=== PATIENT | male | born 1980 | race Caucasian/White ===

== ENCOUNTER 2016-11-20 10:57 | Emergency (ER) | payer BC, OTHER ==
[2016-11-20 11:23] VITALS: BP 137/94; PULSE 76; RESP 20; TEMP 98.1
--- NOTE | 2016-11-20 13:17 | ED ---
ENT HPI - General Chief complaint: Dental/Oral Stated complaint: tooth pain Time Seen by Provider: 11/20/16 13:13 Source: patient, RN notes reviewed Mode of arrival: ambulatory Limitations: no limitations - History of Present Illness Initial comments: 36 year old male presents emergency Department with the chief complaint dental pain. Patient states that he's had bad teeth and states that he's had dental problems in the past. Patient states that he has not been to the dental clinic at this time. Patient denies any fevers or chills. Patient states he has some facial swelling or difficulty swallowing. Patient tried some Tylenol with no relief. - Related Data Home Medications Medication Instructions Recorded Confirmed HYDROcodone/APAP 7.5-325MG [[place] 1 tab PO TID PRN 11/22/15 03/18/16 7.5-325] Previous Rx's Medication Instructions Recorded HYDROcodone/APAP 7.5-325MG [[place] 1 each PO Q6HR PRN #30 tab 03/18/16 7.5] Clindamycin HCl 300 mg PO Q6HR #40 cap 11/20/16 Hydrocodone/Acetaminophen [[place] 1 tab PO Q6HR PRN #20 tab 11/20/16 5-325] Allergies Allergy/AdvReac Type Severity Reaction Status Date / Time Penicillins Allergy Rash/Hives Verified 11/20/16 11:23 Review of Systems ROS Statement: Those systems with pertinent positive or pertinent negative responses have been documented in the HPI. ROS Other: All systems not noted in ROS Statement are negative. Past Medical History Past Medical History: Osteoarthritis (OA) Additional Past Medical History / Comment(s): migraines, History of Any Multi-Drug Resistant Organisms: None Reported Past Surgical History: Appendectomy, Hernia Repair, Orthopedic Surgery, Tonsillectomy Additional Past Surgical History / Comment(s): Rt hip arthroscopic ,lt knee Past Anesthesia/Blood Transfusion Reactions: No Reported Reaction Past Psychological History: No Psychological Hx Reported Smoking Status: Current every day smoker Past Alcohol Use History: None Reported Additional Past Alcohol Use History / Comment(s): Smokes < 1/2 PPD, smoked for 20 yrs Past Drug Use History: None Reported - Past Family History Father Family Medical History: Coronary Artery Disease (CAD), Diabetes Mellitus, Hypertension Mother Family Medical History: No Reported History Additional Family Medical History / Comment(s): CABG General Exam Limitations: no limitations General appearance: alert, in no apparent distress Head exam: Present: atraumatic, normocephalic, normal inspection ENT exam: Present: mucous membranes moist, TM's normal bilaterally, normal external ear exam. Absent: normal exam, normal oropharynx (Multiple dental caries mild swelling of the left upper gums with no drainable abscess) Neck exam: Present: normal inspection. Absent: tenderness, meningismus, lymphadenopathy Respiratory exam: Present: normal lung sounds bilaterally. Absent: respiratory distress, wheezes, rales, rhonchi, stridor Cardiovascular Exam: Present: regular rate, normal rhythm, normal heart sounds. Absent: systolic murmur, diastolic murmur, rubs, gallop, clicks Course Vital Signs 11/20/16 11:20 Temperature 98.1 F Pulse Rate 76 Respiratory 20 Rate Blood Pressure 137/94 O2 Sat by Pulse 99 Oximetry Medical Decision Making - Medical Decision Making 36-year-old male presented for dental pain. Patient be treated with clindamycin , [place]. He is advised follow-up with dentist return parameters were discussed. Disposition Clinical Impression: Pain, dental, Dental infection Disposition: HOME SELF-CARE Condition: Stable Instructions: Toothache (ED) Additional Instructions: Please return to the Emergency Department if symptoms worsen or any other concerns.Please follow up with the [facility] dental clinic. [facility] [place] [address]. Phone number for new patients or [phone] for existing patients. Prescriptions: Clindamycin HCl 300 mg PO Q6HR #40 cap Hydrocodone/Acetaminophen [[place] 5-325] 1 tab PO Q6HR PRN #20 tab PRN Reason: Pain Referrals: Pk Hurtado MD [Primary Care Provider] - 1-2 days Time of Disposition: 13:17
== END 2016-11-20 13:24 | disposition home or self-care (01) ==
LOC: EC 10:57
DX: K04.7 Periapical abscess without sinus (principal); K02.9 Dental caries, unspecified; F17.200 Nicotine dependence, unspecified, uncomplicated; Z88.0 Allergy status to penicillin
CPT/HCPCS: 99282

== ENCOUNTER → 2021-03-05 | Outpatient (CLI) | payer OTHER ==
--- NOTE | 2021-03-05 14:37 | US ---
EXAMINATION TYPE: US gallbladder DATE OF EXAM: 03/05/2021 COMPARISON: NONE CLINICAL HISTORY: R10.11 RUQ Abd pain. Patient stated has intermittent epigastric pain x 1 year, but increasing in intensity and radiating to back in past month. EXAM MEASUREMENTS: Liver Length: 15.9 cm Gallbladder Wall: 0.2 cm CBD: 0.1 cm Right Kidney: 9.1 x 5.0 x 3.7 cm Pancreas: wnl. Distal tail was not visualized due to bowel gas Liver: wnl Gallbladder: wnl Evidence for sonographic Bernstein's sign: no CBD: wnl Right Kidney: No hydronephrosis or masses seen IMPRESSION: 1. Visualized right upper quadrant ultrasound is normal.
== END | disposition home or self-care (01) ==
LOC: RADUSWWP 13:34
PROVIDERS: ATTEND Family Medicine
DX: R10.11 Right upper quadrant pain (principal); R10.13 Epigastric pain
CPT/HCPCS: 76705

== ENCOUNTER 2021-04-17 08:05 | Day surgery (SDC) | payer OTHER ==
[2021-04-15 10:45] VITALS: BMI 26.6
[~2021-04-17 08:05] MED LIST: LACTATED RINGERS 1,000 ML IV SCH; LIDOCAINE 1% (10MG/ML) FOR IV START INTRADERMA PRN
[2021-04-17 08:43] VITALS: TEMP 98
[2021-04-17] MEDS ORDERED: LIDOCAINE 1% INJ 10MG/ML (20 ML MDV) ONE (09:31)
[2021-04-17] MEDS ORDERED: PROPOFOL 10 MG/ML 20 ML VIAL IV ONE (09:31)
--- NOTE | 2021-04-17 09:31 | P.GSHP ---
History of Present Illness H&P Date: 04/17/21 Chief Complaint: GERD Is a 40-year-old male who presents today for EGD. He's had issues with GERD. Past Medical History Past Medical History: Asthma, Chest Pain / Angina, Myocardial Infarction ([place]), Osteoarthritis (OA) Additional Past Medical History / Comment(s): migraines, recent pain in chest Last Myocardial Infarction Date:: 03/11 History of Any Multi-Drug Resistant Organisms: None Reported Past Surgical History: Appendectomy, Hernia Repair, Orthopedic Surgery, Tonsillectomy Additional Past Surgical History / Comment(s): Rt hip arthroscopic ,lt knee Past Anesthesia/Blood Transfusion Reactions: No Reported Reaction, Motion Sickness Smoking Status: Current every day smoker - Past Family History Father Family Medical History: Coronary Artery Disease (CAD), Diabetes Mellitus, Hypertension Mother Family Medical History: No Reported History Additional Family Medical History / Comment(s): CABG Medications and Allergies Home Medications Medication Instructions Recorded Confirmed Type Budesonide/Formoterol Fumarate 2 puff INHALATION BID 04/15/21 04/15/21 History [Symbicort 160-4.5 Mcg Inhaler] HYDROcodone/APAP 10-325MG [[place] 1 tab PO TID PRN 04/15/21 04/15/21 History 10-325] Ibuprofen [Motrin] 800 mg PO Q8H PRN 04/15/21 04/15/21 History Allergies Allergy/AdvReac Type Severity Reaction Status Date / Time Penicillins Allergy Rash/Hives Verified 04/17/21 08:35 Surgical - Exam Vital Signs Temp Pulse Resp BP Pulse Ox 98.0 F 66 16 140/85 98 04/17/21 08:40 04/17/21 08:40 04/17/21 08:40 04/17/21 08:40 04/17/21 08:40 - General well developed, well nourished, no distress - Eyes PERRL - ENT normal pinna - Neck no masses - Respiratory normal expansion - Cardiovascular Rhythm: regular - Abdomen Abdomen: soft, non tender Assessment and Plan Assessment: GERD. We'll perform EGD.
--- NOTE | 2021-04-17 09:39 | P.OP ---
Date of Procedure: 04/17/21 Preoperative Diagnosis: GERD Postoperative Diagnosis: Mild antral gastritis Small sliding hiatal hernia Mild esophagitis Procedure(s) Performed: EGD Anesthesia: MAC Surgeon: Yovani Kelly Pathology: other (Antral, esophagus) Condition: stable Disposition: PACU Description of Procedure: The patient's placed on the endoscopy table in the lateral position. He received IV sedation. The gastroscope placed oropharynx passed in the esophagus and the stomach. Scope was placed through the pylorus. The first and second portion of the duodenum scope was then brought back the antrum this. Mildly inflamed. A biopsies performed. Scope was then retroflexed and the remainder stomach appeared normal. There appeared to be evidence of a small sliding hiatal hernia. The GE junction was at 40 cm the distal esophagus appeared minimally inflamed. A biopsy the proximal esophagus appeared normal. Scope was withdrawn for patient.
[2021-04-17] MEDS ORDERED: IV FLUID CONTINUATION 600 ML IV ONE (09:40)
[2021-04-17 10:16] VITALS: BP 124/80; PULSE 65; RESP 16
== END 2021-04-17 10:45 | disposition home or self-care (01) ==
LOC: ORWHC2ENDO 08:05
PROVIDERS: ATTEND Surgery
DX: K21.00 Gastro-esophageal reflux disease with esophagitis, without bleeding (principal); K44.9 Diaphragmatic hernia without obstruction or gangrene; K29.70 Gastritis, unspecified, without bleeding; J44.9 Chronic obstructive pulmonary disease, unspecified; E78.5 Hyperlipidemia, unspecified; E78.00 Pure hypercholesterolemia, unspecified; E29.1 Testicular hypofunction; R16.0 Hepatomegaly, not elsewhere classified; F17.299 Nicotine dependence, other tobacco product, with unspecified nicotine-induced disorders; M51.16 Intervertebral disc disorders with radiculopathy, lumbar region; E66.9 Obesity, unspecified; Z68.25 Body mass index [BMI] 25.0-25.9, adult
CPT/HCPCS: 88305; 43239; J2001; J2704

== ENCOUNTER → 2021-05-02 | Outpatient (CLI) | payer OTHER ==
[2021-05-02 16:50] LABS: Basophils % (A) 0 %; Eosinophils # (A) 0.3 k/uL (0-0.7); Eosinophils % (A) 5 %; HCT 40.4 % (39.0-53.0); HGB 13.4 gm/dL (13.0-17.5); Lymphocytes % (A) 32 %; MCH 31.6 pg (25.0-35.0); MCHC 33.1 g/dL (31.0-37.0); MCV 95.6 fL (80.0-100.0); Monocytes # (A) 0.4 k/uL (0-1.0); Monocytes % (A) 6 %; Neutrophils # (A) 3.4 k/uL (1.3-7.7); Neutrophils % (A) 53 %; Platelet Count 413 k/uL (150-450); RBC 4.23 m/uL (4.30-5.90); RDW 12.7 % (11.5-15.5); WBC 6.3 k/uL (3.8-10.6)
== END | disposition home or self-care (01) ==
LOC: LABPAT 15:54
PROVIDERS: ATTEND Surgery
DX: I10 Essential (primary) hypertension (principal); K21.00 Gastro-esophageal reflux disease with esophagitis, without bleeding
CPT/HCPCS: 85025; 93005

== ENCOUNTER 2021-05-13 06:30 | Day surgery (SDC) | payer OTHER ==
[~2021-05-13 06:30] MED LIST changes: +ACETAMINOPHEN TAB 500 MG TAB PO PRN; +DEXAMETHASONE SOD PHOSPHATE 4 MG/ML 1 ML VIAL IV ONE; +HEPARIN SODIUM,PORCINE/PF 5,000 UNIT/0.5 ML SYRINGE SQ PRN; -LACTATED RINGERS 1,000 ML IV SCH; +ONDANSETRON 4 MG/2 ML VIAL IVP ONE; +SCOPOLAMINE 1.5MG/72HR PATCH TRANSDERM ONE
[2021-05-13] MEDS: LACTATED RINGERS 1,000 ML IV SCH (07:04)
[2021-05-13] MEDS ORDERED: MIDAZOLAM 2 MG/2 ML VIAL ONE (07:53)
[2021-05-13] MEDS ORDERED: LIDOCAINE 1% INJ 10MG/ML (20 ML MDV) ONE (07:53)
[2021-05-13] MEDS ORDERED: PROPOFOL 10 MG/ML 20 ML VIAL IV ONE (07:53)
[2021-05-13] MEDS ORDERED: NEOSTIGMINE 1 MG/ML 10 ML VIAL ONE (07:53)
[2021-05-13] MEDS ORDERED: ALBUTEROL HFA INHALER INHALATION ONE (07:53)
[2021-05-13] MEDS ORDERED: ROCURONIUM 10 MG/ML (5 ML VIAL) IV ONE (07:53)
[2021-05-13] MEDS ORDERED: KETAMINE 10 MG/ML 20 ML VIAL ONE (07:53)
[2021-05-13] MEDS ORDERED: GLYCOPYRROLATE 0.2 MG/ML 2 ML VIAL ONE (07:53)
[2021-05-13] MEDS ORDERED: fentaNYL (PF) 50 MCG/ML 2 ML AMP ONE (07:53)
[2021-05-13] MEDS ORDERED: SUCCINYLCHOLINE CHLORIDE 100 MG/5 ML SYR IV ONE (07:53)
[2021-05-13] MEDS ORDERED: BUPIVACAINE (PF) 0.25% 30 ML VIAL SQ ONE (08:20)
--- NOTE | 2021-05-13 09:03 | P.GSHP ---
History of Present Illness H&P Date: 05/13/21 Chief Complaint: GERD This a 40-year-old male who's had long-standing problems reflux esophagitis. Patient rents today for laparoscopic Jair fundal plication. Patient's where the surgery including conversion to the open procedure and issues of recurrent GERD and dysphagia. Past Medical History Past Medical History: Asthma, Chest Pain / Angina, GERD/Reflux, Myocardial Infarction ([place]), Osteoarthritis (OA) Additional Past Medical History / Comment(s): migraines, recent pain in chest , HIATAL HERNIA Last Myocardial Infarction Date:: 03/11 History of Any Multi-Drug Resistant Organisms: None Reported Past Surgical History: Appendectomy, Hernia Repair, Orthopedic Surgery, Tonsillectomy Additional Past Surgical History / Comment(s): Rt hip arthroscopic ,lt knee SX, EGD Past Anesthesia/Blood Transfusion Reactions: No Reported Reaction, Motion Sickness Smoking Status: Current every day smoker - Past Family History Father Family Medical History: Coronary Artery Disease (CAD), Diabetes Mellitus, H ypertension Mother Family Medical History: No Reported History Additional Family Medical History / Comment(s): CABG Medications and Allergies Home Medications Medication Instructions Recorded Confirmed Type Budesonide/Formoterol Fumarate 2 puff INHALATION BID 04/15/21 05/13/21 History [Symbicort 160-4.5 Mcg Inhaler] Ibuprofen [Motrin] 800 mg PO Q8H PRN 04/15/21 05/09/21 History Allergies Allergy/AdvReac Type Severity Reaction Status Date / Time Penicillins Allergy Rash/Hives Verified 05/09/21 09:40 Surgical - Exam Vital Signs Temp Pulse Resp BP Pulse Ox 97.1 F L 76 16 125/81 97 05/13/21 06:54 05/13/21 06:54 05/13/21 06:54 05/13/21 06:54 05/13/21 06:54 - General well developed, well nourished, no distress - Eyes PERRL - ENT normal pinna - Neck no masses - Respiratory normal expansion - Cardiovascular Rhythm: regular - Abdomen Abdomen: soft, non tender Assessment and Plan Assessment: GERD. We'll perform laparoscopic Jair fundoplication
[2021-05-13] MEDS ORDERED: ALBUTEROL NEBULIZED 2.5 MG/3 ML INHALATION ONE (09:20)
[2021-05-13] MEDS ORDERED: ALBUTEROL NEBULIZED 2.5 MG/3 ML INHALATION STA (09:21)
[2021-05-13] MEDS: MEPERIDINE 50 MG/ML SYRINGE IVP STA ×2 (09:28→09:34)
[2021-05-13] MEDS: HYDROmorphone 0.5 MG/0.5 ML SYRINGE IVP PRN ×2 (11:11→17:53)
--- NOTE | 2021-05-13 11:14 | FL ---
EXAMINATION TYPE: FL esophagus cervic/pharynx DATE OF EXAM: 05/13/2021 LIMITED UGI-ESOPHAGRAM: CLINICAL HISTORY: Hiatal hernia and reflux status post Javy fundoplication surgery earlier today. TECHNIQUE: Limited esophagram is performed utilizing 20 oz of contrast. A total of 69 seconds of flu oroscopic time was utilized during procedure and 15 images obtained. FINDINGS: The patient swallowed contrast without difficulty or delay. Esophageal peristalsis and mo tility are satisfactory. There is no visualized flow of contrast along the diaphragmatic hiatus into the stomach, even after waiting over 10 minutes. There is stasis of contrast with some proximal esoph ageal reflux seen during real-time scanning No persistent hiatal hernia is seen. Patient however show s no increased symptoms of nausea or vomiting. IMPRESSION: Nondiagnostic as no flow of contrast identified at level of diaphragmatic hiatus to asses s for leak. .
[2021-05-13 13:26] VITALS: BMI 25.6
[2021-05-13] MEDS: D5-0.45% NACL WITH KCL 20MEQ/L 1,000 ML IV SCH ×3 (13:55→22:50)
[2021-05-13] MEDS: DEXAMETHASONE SOD PHOSPHATE 4 MG/ML 1 ML VIAL IVP SCH ×3 (13:58→22:50)
[2021-05-13 20:02] VITALS: RESP 16
[2021-05-13] MEDS: HYDROmorphone 1 MG/ML 1 ML SYRINGE IVP PRN (22:55)
[2021-05-14] MEDS: LACTATED RINGERS 1,000 ML IV SCH (03:11)
[2021-05-14] MEDS: HYDROmorphone 1 MG/ML 1 ML SYRINGE IVP PRN ×2 (03:14→08:00)
[2021-05-14] MEDS: DEXAMETHASONE SOD PHOSPHATE 4 MG/ML 1 ML VIAL IVP SCH ×2 (05:13→12:31)
[2021-05-14] MEDS: D5-0.45% NACL WITH KCL 20MEQ/L 1,000 ML IV SCH (05:14)
[2021-05-14] MEDS ORDERED: SYMBICORT 160-4.5 MCG INHALER INHALATION SCH (08:00)
[2021-05-14] MEDS ORDERED: ENOXAPARIN 40 MG/0.4 ML SYRINGE SQ SCH (09:00)
--- NOTE | 2021-05-14 09:14 | CONS ---
CONSULTATION Kyioz-vjig-imb white male with a longstanding history of reflux esophagitis, status post Jair fundoplication with surgery including conversion to open procedure and issues of recurrent GERD and dysphagia. PAST MEDICAL HISTORY: Asthma, GERD, osteoarthritis, coronary artery disease. Surgeries: orthopedic surgery, tonsillectomy, appendectomy, right hip arthroscopy, knee surgery, EGD. Family history: Father with diabetes mellitus, coronary artery disease, hypertension. Mother with CABG. The patient continues to smoke. Home medicines: Symbicort 2 puffs b.i.d. ALLERGIES: PENICILLIN. PHYSICAL EXAMINATION: Temperature is 97.1, pulse 76, respiratory rate 16-18, blood pressure 125/81, O2 97. Pupils equal, round, reactive to light and accommodation. Cardiovascular S1, S2. Lungs clear. GI soft. Hematology negative Homans. Psych fair mood and affect. ASSESSMENT AND PLAN: Gastroesophageal reflux disease, status post Jair fundoplication. Do a video scope, make sure he can swallow and pass food down the pipe without any stenosis prior to discharge. Continue on Symbicort for his inhalers for breathing. MMODL / IJN: [id number] /
--- NOTE | 2021-05-14 11:20 | P.PN ---
Progress Note - Text Progress Note Date: 05/14/21 Patient is doing well. He started clear liquids. On exam vital signs are stable. Abdomen soft. Incision sites clean and intact. Status post Jair fundoplication. His initial postoperative upper GI showed occlusion most likely postoperative edema. Patient has no clinical signs of obstruction at this point. He'll remain on clear liquid diet. He'll be discharged home today.
[2021-05-14 12:00] VITALS: BP 100/62; PULSE 71; TEMP 98.1
--- NOTE | 2021-05-21 09:48 | P.OP ---
Date of Procedure: 05/21/21 Preoperative Diagnosis: GERD Postoperative Diagnosis: GERD Procedure(s) Performed: Laparoscopic Jair fundal plication Anesthesia: MONIKA Surgeon: Yovani Kelly Estimated Blood Loss (ml): 5 Pathology: none sent Condition: stable Disposition: PACU Description of Procedure: HarThe patient was placed on the operating table in the supine position. The patient received general anesthesia. And was placed in dorsal lithotomy position. The patient was prepped and draped in the usual sterile fashion. The skin incision sites were anesthetized with 1% local Xylocaine. The skin was incised in the left periumbilical area and then using a blade less 5 mm trocar u nder direct visualization panel cavity was entered. After adequate insufflation the laparoscope was then placed into the peritoneal cavity. Next a 5 mm trochars placed in the right epigastric position. Another 5 millimeter trocar the right lateral position. Another 5 millimeter trocar in the left lateral position a 5 mm trocar is placed in the left epigastric position. And then the initial 5 mm trocar was exchanged for a 10 mm trocar. The left lateral lobe liver was retracted. The hernia was seen. The crural defect was then dissected using the Harmonic scissors device. A 360 crural dissection was performed the esophagus stomach was reduced back into the peritoneal Cavity. The crural defect was then closed using 2-0 Ethibond suture. Next the fundus of the stomach was mobilized using the Clayton scissors device. and then a 58-Prydeinig bougie dilator was placed oropharynx passed into the esophagus and stomach the fundal plication wrap was then performed by grasping the fundus posteriorly and bringing it around the esophagus and stomach fundoplication was then performed using 2-0 Ethibond suture. Care was taken that the fundal location rested over top of the intra-abdominal esophagus. There was no injury seen to the stomach or esophagus. The dilator was then withdrawn. The abdomen was irrigated there is no bleeding seen. The trochars were then withdrawn and then skin incision sites were closed using 3-0 Monocryl suture Steri-Strips are applied. Patient thought procedure well and sent to recovery room in stable condition.
== END 2021-05-14 14:04 | disposition home or self-care (01) ==
LOC: OR 06:30 → 5NMEDONC 11:53 → OR 05-14 14:04
PROVIDERS: ATTEND Surgery
DX: K21.00 Gastro-esophageal reflux disease with esophagitis, without bleeding (principal); Z98.890 Other specified postprocedural states; J45.909 Unspecified asthma, uncomplicated; I25.2 Old myocardial infarction; Z20.822 Contact with and (suspected) exposure to COVID-19; M19.90 Unspecified osteoarthritis, unspecified site; G43.909 Migraine, unspecified, not intractable, without status migrainosus; Z90.49 Acquired absence of other specified parts of digestive tract; F17.200 Nicotine dependence, unspecified, uncomplicated; Z82.49 Family history of ischemic heart disease and other diseases of the circulatory system; Z83.3 Family history of diabetes mellitus; Z79.51 Long term (current) use of inhaled steroids
CPT/HCPCS: 94640; 87635; 74210; 43280; J2250; J1100 ×2; J2710; J2175; J0690; J2405; J2001; J1650; J3010; J1170 ×3; J0330; J2704; Q9967; J1644

== ENCOUNTER → 2021-05-23 | Outpatient (CLI) | payer OTHER ==
--- NOTE | 2021-05-23 16:17 | NM ---
EXAMINATION TYPE: NM hepatobiliary w EF DATE OF EXAM: 05/23/2021 COMPARISON: NONE INDICATION: Gastroesophageal reflux TECHNIQUE: After the intravenous administration of 5.3 mCi Tc 99m Mebrofenin hepatobiliary scintigrap hy is performed. Images were obtained immediately post injection. FINDINGS: There is prompt uptake and excretion of radiotracer by the liver. Extrahepatic ducts are identified at 4 minutes. The gallbladder is visualized within 4 minutes. Small bowel activity is noted within 28 minutes. At one hour 8 ounces of oral ensure plus is given to mimic CCK and gallbladder ejection fraction is c alculated at 50 %, which is in the normal range. (Normal >35% and <80%.). IMPRESSION: 1. Normal hepatobiliary scan
== END | disposition home or self-care (01) ==
LOC: RADNMMAIN 12:44
PROVIDERS: ATTEND Family Medicine
DX: K21.9 Gastro-esophageal reflux disease without esophagitis (principal)
CPT/HCPCS: 78226; A9537

== ENCOUNTER 2021-06-09 13:01 | Day surgery (SDC) | payer OTHER ==
[2021-06-06 10:51] VITALS: BMI 26.1
[2021-06-09] MEDS ORDERED: LACTATED RINGERS 1,000 ML IV ONE (13:30)
[2021-06-09 13:41] VITALS: TEMP 97.1
[2021-06-09] MEDS ORDERED: LIDOCAINE 1% INJ 10MG/ML (20 ML MDV) ONE (14:01)
[2021-06-09] MEDS ORDERED: PROPOFOL 10 MG/ML 20 ML VIAL IV ONE (14:01)
--- NOTE | 2021-06-09 14:16 | P.GSHP ---
History of Present Illness H&P Date: 06/09/21 Chief Complaint: Dysphagia This a 40-year-old male who presents today for EGD. Patient recent hiatal hernia pair. He's had complaints of dysphagia. Past Medical History Past Medical History: Asthma, Chest Pain / Angina, GERD/Reflux, Myocardial Infarction ([place]), Osteoarthritis (OA) Additional Past Medical History / Comment(s): migraines, HIATAL HERNIA , TROUBLE SWALLOWING Last Myocardial Infarction Date:: 03/11 History of Any Multi-Drug Resistant Organisms: None Reported Past Surgical History: Appendectomy, Hernia Repair, Orthopedic Surgery, Tonsillectomy Additional Past Surgical History / Comment(s): Rt hip arthroscopic ,lt knee SX, EGD, HIATAL HERNIA SURGERY Past Anesthesia/Blood Transfusion Reactions: Motion Sickness, Postoperative Nausea & Vomiting (PONV) Additional Past Anesthesia/Blood Transfusion Reaction / Comment(s): POST OP NAUSEA Smoking Status: Current every day smoker - Past Family History Father Family Medical History: Coronary Artery Disease (CAD), Diabetes Mellitus, Hypertension Mother Family Medical History: No Reported History Additional Family Medical History / Comment(s): CABG Medications and Allergies Home Medications Medication Instructions Recorded Confirmed Type Budesonide/Formoterol Fumarate 2 puff INHALATION BID 04/15/21 06/09/21 History [Symbicort 160-4.5 Mcg Inhaler] Ibuprofen [Motrin] 800 mg PO Q8H PRN 04/15/21 06/09/21 History Acetaminophen Tab [Tylenol] 650 mg PO Q6H PRN 06/06/21 06/09/21 History HYDROcodone/APAP 10-325MG [[place] 1 tab PO Q4HR PRN 06/06/21 06/09/21 History 10-325] Allergies Allergy/AdvReac Type Severity Reaction Status Date / Time Penicillins Allergy Rash/Hives Verified 06/09/21 13:27 Surgical - Exam Vital Signs Temp Resp BP Pulse Ox 97.1 F L 14 111/74 97 06/09/21 13:40 06/09/21 13:40 06/09/21 13:40 06/09/21 13:40 - General well developed, well nourished, no distress - Eyes PERRL - ENT normal pinna - Neck no masses - Respiratory normal expansion - Cardiovascular Rhythm: regular - Abdomen Abdomen: soft, non tender Assessment and Plan Assessment: Dysphagia. We'll perform EGD and possible balloon dilatation.
--- NOTE | 2021-06-09 14:24 | P.OP ---
Date of Procedure: 06/09/21 Preoperative Diagnosis: Dysphagia Postoperative Diagnosis: Dysphagia Procedure(s) Performed: EGD with balloon dilatation of GE junction 20 mm Anesthesia: MAC Surgeon: Yovani Kelly Pathology: none sent Condition: stable Disposition: PACU Description of Procedure: The patient's placed on the endoscopy table in the lateral position. He received IV sedation. The gastro-/oropharynx passed in the esophagus into the stomach. Scope was then placed through the pylorus. The first and second portion duodenum appeared normal. Scope was then brought back and stomach. This appeared normal. The patient a previous hiatal hernia repair. There is no obvious obstruction of the GE junction. The digital patient's ability dysphagia a 20 mm balloon was placed across the GE junction and held position for 3 minutes. The balloon was then taken out. There is known to any injury to the stomach. Or the esophagus. The balloon was withdrawn for patient. The remainder of the esophagus. Normal. Scope withdrawn for patient.
[2021-06-09 14:42] VITALS: BP 105/69; PULSE 75; RESP 16
== END 2021-06-09 15:04 | disposition home or self-care (01) ==
LOC: ORWHC2ENDO 13:01
PROVIDERS: ATTEND Surgery
DX: R13.10 Dysphagia, unspecified (principal); K21.9 Gastro-esophageal reflux disease without esophagitis; J45.909 Unspecified asthma, uncomplicated; I25.2 Old myocardial infarction; G43.909 Migraine, unspecified, not intractable, without status migrainosus; Z90.49 Acquired absence of other specified parts of digestive tract; Z98.890 Other specified postprocedural states; F17.200 Nicotine dependence, unspecified, uncomplicated; Z82.49 Family history of ischemic heart disease and other diseases of the circulatory system; Z83.3 Family history of diabetes mellitus; Z79.51 Long term (current) use of inhaled steroids; Z88.0 Allergy status to penicillin
CPT/HCPCS: 43249; J2001; J2704; C1726

== ENCOUNTER 2022-02-11 07:43 | Day surgery (SDC) | payer OTHER ==
[~2022-02-11 07:43] MED LIST changes: +HYDROmorphone 0.5 MG/0.5 ML SYRINGE IVP PRN; +LACTATED RINGERS 1,000 ML IV SCH; -LIDOCAINE 1% (10MG/ML) FOR IV START INTRADERMA PRN; -SCOPOLAMINE 1.5MG/72HR PATCH TRANSDERM ONE
[2022-02-11] MEDS ORDERED: MIDAZOLAM 2 MG/2 ML VIAL IVP ONE (08:57)
[2022-02-11] MEDS ORDERED: fentaNYL (PF) 50 MCG/ML 2 ML AMP IVP ONE (08:57)
--- NOTE | 2022-02-11 09:35 | P.ANPRN ---
Procedure Note - Anesthesia - Nerve Block Performed Bilateral Erector Spinae Single Time Out Performed: Yes Date of Procedure: 02/11/22 Procedure Start Time: 08:56 Procedure Stop Time: 09:06 Location of Patient: PreOp Indication: Requested by Surgeon Specifically requested for management of pain by DrWendy: Yovani Kelly Sedation Type: Sedate with meaningful contact maintained Preparation: Sterile Prep Position: Prone Needle Types: Pajunk Needle Gauge: 21 Ultrasound used to visualize needle placement: Yes Ultrasound used to observe medication spread: Yes Injectate: 0.5% Ropivacaine (see comment for volume) (20 ml + 10 ml NS +4 mg Dexamethason per side) Blood Aspirated: No Pain Paresthesia on Injection Noted: No Resistance on Injection: Normal Image Stored and Saved: Yes Events: Uneventful and Well Tolerated
--- NOTE | 2022-02-11 09:50 | P.GSHP ---
History of Present Illness H&P Date: 02/11/22 Chief Complaint: Recurrent left inguinal hernia This 41-year-old male who's developed a recurrent left and one hernia. Patient presents today for laparoscopic robotic system repair of left inguinal hernia. Past Medical History Past Medical History: Asthma, Chest Pain / Angina, GERD/Reflux, Myocardial Infarction ([place]), Osteoarthritis (OA) Additional Past Medical History / Comment(s): migraines, HIATAL HERNIA. CHRONIC NECK AND BACK PAIN. Last Myocardial Infarction Date:: 03/11 History of Any Multi-Drug Resistant Organisms: None Reported Past Surgical History: Appendectomy, Hernia Repair, Orthopedic Surgery, Tonsillectomy Additional Past Surgical History / Comment(s): Rt hip arthroscopic ,lt knee SX, EGD, HIATAL HERNIA SURGERY Past Anesthesia/Blood Transfusion Reactions: Motion Sickness, Postoperative Nausea & Vomiting (PONV) Additional Past Anesthesia/Blood Transfusion Reaction / Comment(s): POST OP NAUSEA Past Psychological History: No Psychological Hx Reported Smoking Status: Current every day smoker Past Alcohol Use History: None Reported Additional Past Alcohol Use History / Comment(s): STARTED SMOKING AT AGE 15 Smokes < 1/2 PPD, Past Drug Use History: None Reported - Past Family History Father Family Medical History: Coronary Artery Disease (CAD), Diabetes Mellitus, Hypertension Mother Family Medical History: No Reported History Additional Family Medical History / Comment(s): CABG Medications and Allergies Home Medications Medication Instructions Recorded Confirmed Type Budesonide/Formoterol Fumarate 2 puff INHALATION BID 04/15/21 02/11/22 History [Symbicort 160-4.5 Mcg Inhaler] Ibuprofen [Motrin] 800 mg PO Q8H PRN 04/15/21 02/11/22 History HYDROcodone/APAP 10-325MG [[place] 1 tab PO Q4HR PRN 06/06/21 02/11/22 History 10-325] Allergies Allergy/AdvReac Type Severity Reaction Status Date / Time Penicillins Allergy Rash/Hives Verified 02/11/22 08:08 Surgical - Exam Vital Signs Temp Pulse Resp BP Pulse Ox 97.0 F L 71 15 119/86 98 02/11/22 08:24 02/11/22 08:24 02/11/22 08:24 02/11/22 08:24 02/11/22 08:24 - General well developed, well nourished, no distress - Eyes PERRL - ENT normal pinna - Neck no masses - Respiratory normal expansion - Cardiovascular Rhythm: regular - Abdomen Abdomen: soft, non tender Hernia: inguinal (Left inguinal hernia) Assessment and Plan Assessment: Left inguinal hernia. We'll perform laparoscopic robotic-assisted repair.
[2022-02-11] MEDS ORDERED: ROCURONIUM 10 MG/ML (5 ML VIAL) IV ONE (10:14)
[2022-02-11] MEDS ORDERED: GLYCOPYRROLATE 0.2 MG/ML 2 ML VIAL ONE (10:14)
[2022-02-11] MEDS ORDERED: NEOSTIGMINE 1 MG/ML 10 ML VIAL ONE (10:14)
[2022-02-11] MEDS ORDERED: fentaNYL (PF) 50 MCG/ML 2 ML AMP ONE (10:14)
[2022-02-11] MEDS ORDERED: SUGAMMADEX SODIUM 200 MG/2 ML SDV IV ONE (10:14)
[2022-02-11] MEDS ORDERED: PROPOFOL 10 MG/ML 20 ML VIAL IV ONE (10:14)
[2022-02-11] MEDS ORDERED: MIDAZOLAM 2 MG/2 ML VIAL ONE (10:14)
[2022-02-11] MEDS ORDERED: DEXAMETHASONE SOD PHOSPHATE 4 MG/ML 1 ML VIAL ONE (10:14)
[2022-02-11] MEDS ORDERED: SODIUM CHLORIDE 0.9% (PF) 10 ML VIAL ONE (10:14)
[2022-02-11] MEDS ORDERED: ROPIVACAINE 5 MG/ML 30 ML VIAL ONE (10:14)
[2022-02-11] MEDS ORDERED: LIDOCAINE 2% INJ 20 MG/ML (2 ML VIAL) ONE (10:14)
[2022-02-11] MEDS ORDERED: SUCCINYLCHOLINE CHLORIDE 200 MG/10 ML VIAL IV ONE (10:14)
[2022-02-11 10:18] LABS: African American GFR (CKD) >90 (>60 ml/min/1.73 sqM); Anion Gap 10 mmol/L; Blood Urea Nitrogen 4 mg/dL (9-20); Calcium 9.3 mg/dL (8.4-10.2); Carbon Dioxide 26 mmol/L (22-30); Chloride 105 mmol/L (98-107); Glucose 99 mg/dL (74-99); Non-African American GFR(CKD) >90 (>60 ml/min/1.73 sqM); Potassium 4.1 mmol/L (3.5-5.1); Sodium 141 mmol/L (137-145)
[2022-02-11] MEDS ORDERED: BUPIVACAIN-EPI 0.25%-1:200,000 30 ML VIAL SQ ONE ×2 (10:33→10:38)
--- NOTE | 2022-02-11 11:06 | P.OP ---
Date of Procedure: 02/11/22 Preoperative Diagnosis: Left inguinal hernia Postoperative Diagnosis: Left inguinal hernia Procedure(s) Performed: Laparoscopic robotic-assisted repair of left inguinal hernia Transversus abdominis plane block Anesthesia: MONIKA Surgeon: Yovani Kelly Estimated Blood Loss (ml): 5 Pathology: none sent Condition: stable Disposition: PACU Description of Procedure: MThe patient's placed on the operating table in the supine position. The patient received general anesthesia. The patient's abdomen was prepped and draped in usual sterile fashion. The skin was anesthetized 1% local Xylocaine at the incision sites. Using an 11 blade a skin incision was made at the umbilicus. The fascia was grasped with a [place] and then the peritoneal cavity was entered with the Veress needle. Position of the Veress needle was confirmed with a positive drop test. After adequate insufflation a 5 mm trocar was placed into the peritoneal cavity. The Laparoscope was placed the peritoneal cavity. And a robotic 8 mm trocar was placed in the right lateral position and then another 8 mm robotic trochars placed in the left lateral position. The original 5 mm trocar was exchanged for a 12 mm trocar. A four-quadrant transverse abdominous plane block was performed using 1% local Xylocaine. The patient was placed in reverse Trendelenburg and then the patient was docked to the robot. Next the peritoneum over top of the hernia was incised and then using blunt and sharp dissection and electrocautery the hernia sac was dissected free from the floor of the inguinal canal. The hernia sac was completely reduced into the peritoneal cavity. And then using the Pro special certificate dictator mesh the hernia was repaired. The peritoneum was then sutured with 20V lock suture. The patient was then undocked the robot. The needle was withdrawn from the peritoneal cavity. The umbilical trocar site was closed with 0 Ethibond suture. The skin was closed interrupted 3-0 Monocryl suture. Dermabond dressing was applied. Patient was sent to recovery in stable condition.
[2022-02-11 11:27] VITALS: TEMP 98.5
[2022-02-11] MEDS ORDERED: MEPERIDINE 50 MG/ML SYRINGE IVP ONE ×2 (11:28→11:36)
[2022-02-11 11:58] VITALS: RESP 16
[2022-02-11 13:32] VITALS: BP 124/75; PULSE 73
== END 2022-02-11 13:31 | disposition home or self-care (01) ==
LOC: OR 07:43
PROVIDERS: ATTEND Surgery
DX: K40.91 Unilateral inguinal hernia, without obstruction or gangrene, recurrent (principal); J45.909 Unspecified asthma, uncomplicated; K21.9 Gastro-esophageal reflux disease without esophagitis; I25.10 Atherosclerotic heart disease of native coronary artery without angina pectoris; I25.2 Old myocardial infarction; M16.11 Unilateral primary osteoarthritis, right hip; M54.2 Cervicalgia; G89.29 Other chronic pain; F17.200 Nicotine dependence, unspecified, uncomplicated; Z90.49 Acquired absence of other specified parts of digestive tract; Z90.89 Acquired absence of other organs; Z47.89 Encounter for other orthopedic aftercare; Z88.0 Allergy status to penicillin; Z83.3 Family history of diabetes mellitus; Z82.49 Family history of ischemic heart disease and other diseases of the circulatory system; Z87.19 Personal history of other diseases of the digestive system
CPT/HCPCS: 49651; 64999; 86900; 86901; 80048; 86850; C1781; J2250; J0330; J1100; J2710; J2175; J0690; J2405; J3010; J2795; J2704; J1170; J1644; J2001

== ENCOUNTER → 2023-06-01 | Outpatient (CLI) | payer OTHER ==
--- NOTE | 2023-06-02 14:28 | MR ---
EXAMINATION TYPE: MR knee LT wo con DATE OF EXAM: 06/01/2023 COMPARISON: Left knee radiographs 05/25/2012 HISTORY: Chronic left knee pain, hx arthritis, no trauma. TECHNIQUE: Multiplanar, multisequence imaging of the left knee is performed without contrast. FINDINGS: Medial meniscus: Intact. Medial compartment cartilage: High-grade thinning of the medial femoral condyle articular cartilage. 7 mm area of full-thickness. Can't Loss involving the medial most aspect of the medial femoral condyl e Medial collateral ligament: Intact. Lateral meniscus: Intact. Lateral compartment cartilage: Thinning of the lateral tibial plateau articular cartilage Lateral collateral ligament: Intact. Patellofemoral alignment: Normal. Patellofemoral compartment cartilage: Mild to cartilage fibrillation Extensor mechanism: Normal. Anterior cruciate ligament: Intact. Posterior cruciate ligament: Intact. Bone marrow: Slight degenerative subchondral cystic change in the lateral tibial plateau Soft tissues: 1.6 cm ganglion cyst projecting from the posterior aspect of the tibiofibular. No joint effusion. Slightly complex Thomas's cyst. Neurovascular: Normal. IMPRESSION: 1. 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 2. Small ganglion cyst from the tibiofibular joint. 3. Slightly complex Thomas's cyst.
== END | disposition home or self-care (01) ==
LOC: RADMRIMAIN 11:02
PROVIDERS: ATTEND Orthopaedic Surgery
DX: M94.262 Chondromalacia, left knee (principal); M67.462 Ganglion, left knee; M71.22 Synovial cyst of popliteal space [Baker], left knee; M25.562 Pain in left knee; G89.29 Other chronic pain

== ENCOUNTER → 2023-07-02 | Outpatient (CLI) | payer OTHER ==
--- NOTE | 2023-07-02 22:43 | MR ---
EXAMINATION TYPE: MR knee RT wo con DATE OF EXAM: 07/02/2023 COMPARISON: Outside right knee x-ray May 25, 2023 HISTORY: Right knee pain locking and swelling for 2 years. History of prior surgery per patient. TECHNIQUE: Multiplanar, multisequence images of the knee is performed without IV contrast. FINDINGS: MEDIAL MENISCUS: Anterior and posterior horns are intact without tear. LATERAL MENISCUS: Anterior and posterior horns are intact without tear. CRUCIATE LIGAMENTS: The anterior and posterior cruciate ligaments are intact and unremarkable. COLLATERAL LIGAMENTS: The medial collateral ligament and lateral collateral ligament complex are inta ct and unremarkable. EXTENSOR MECHANISM: Visualized quadriceps and patellar tendons are intact. EFFUSION: No significant suprapatellar joint effusion. POPLITEAL CYST: Small size popliteal/duarte cyst. TRICOMPARTMENT SPACES: Tricompartment joint spaces are preserved. No significant spurring is seen. CARTILAGE: Tricompartmental articular cartilage is maintained. BONE MARROW SIGNAL: Heterogeneous increased T2 signal likely reflecting subchondral cystic change inv olving the central tibial condyles. OTHER: No additional significant abnormality is appreciated. IMPRESSION: 1. Small popliteal cyst. 2. No meniscal or ligamentous tear is seen.
== END | disposition home or self-care (01) ==
LOC: RADMRIMAIN 10:59
PROVIDERS: ATTEND Orthopaedic Surgery
DX: M71.21 Synovial cyst of popliteal space [Baker], right knee (principal); M25.561 Pain in right knee

== ENCOUNTER → 2023-07-02 | Outpatient (CLI) | payer OTHER ==
[2023-07-02 20:25] LABS: Basophils # (A) 0.03 X 10*3/uL (0.00-0.10); Basophils % (A) 0.3 %; Eosinophils # (A) 0.21 X 10*3/uL (0.04-0.35); HCT 46.6 % (39.6-50.0); HGB 15.1 g/dL (13.0-17.0); Lymphocytes # (A) 3.73 X 10*3/uL (0.90-5.00); Lymphocytes % (A) 36.3 %; MCH 30.8 pg (27.0-32.0); MCHC 32.4 g/dL (32.0-37.0); MCV 94.9 FL (80.0-97.0); Mean Platelet Volume 9.2 FL (9.5-12.2); Monocytes # (A) 1.04 X 10*3/uL (0.20-1.00); Monocytes % (A) 10.1 %; NRBC Per 100 WBC 0 X 10*3/uL (0.00-0.01); Neutrophils # (A) 5.17 X 10*3/uL (1.80-7.70); Neutrophils % (A) 50.4 %; Platelet Count 430 X 10*3/uL (140-440); RBC 4.91 X 10*6/uL (4.40-5.60); RDW 13.6 % (11.5-14.5); WBC 10.27 X 10*3/uL (4.50-10.00)
[2023-07-03 01:04] LABS: Anion Gap 12.2 mmol/L (4.00-12.00); Carbon Dioxide 27.8 mmol/L (21.6-31.8); Potassium 3.8 mmol/L (3.5-5.5)
== END | disposition home or self-care (01) ==
LOC: LABPAT 12:38
PROVIDERS: ATTEND Orthopaedic Surgery
DX: M23.92 Unspecified internal derangement of left knee (principal)
CPT/HCPCS: 80051; 85025

== ENCOUNTER 2023-07-08 10:41 | Day surgery (SDC) | payer OTHER ==
[2023-07-02 11:29] VITALS: BMI 27.3
--- NOTE | 2023-07-07 20:59 | HP ---
HISTORY AND PHYSICAL Surgery is scheduled for 07/08/2023. HISTORY OF PRESENT ILLNESS: Dheeraj Armstrong is a 43-year-old gentleman seen with progressive left knee pain. After treatment options were discussed, he elected to proceed with arthroscopy. Consent was obtained. PAST MEDICAL HISTORY: Noncontributory. PAST SURGICAL HISTORY: Noncontributory. DAILY MEDICATIONS: 1. Hydrocodone. 2. Ibuprofen. ALLERGIES: Penicillin. SOCIAL HISTORY: He denies tobacco use. PHYSICAL EVALUATION OF THE LEFT KNEE: His range of motion is negative 1/2 to 120 degrees. He has a mild effusion. Tenderness along the medial joint line. Positive medial Dawn's. Ligaments are stable. Hip rotation is without pain. Distal neurovascular exam is intact. IMAGING STUDIES: Radiographs of the left knee revealed mild osteoarthritis. MRI of the left knee revealed a 7 mm area of full-thickness cartilaginous loss along the weightbearing articular surface of medial femoral condyle as well as a ganglion cyst and a complex Thomas cyst. IMPRESSION: Internal derangement of left knee with medial femoral condyle osteochondral defect. PLAN: Left knee arthroscopy with microfracture, medial femoral condyle and debridement. MMODL / IJN: [id number] /
[~2023-07-08 10:41] MED LIST changes: -ACETAMINOPHEN TAB 500 MG TAB PO PRN; -HEPARIN SODIUM,PORCINE/PF 5,000 UNIT/0.5 ML SYRINGE SQ PRN; +LIDOCAINE 1% (10MG/ML) FOR IV START INTRADERMA PRN; +SCOPOLAMINE 1 MG/72 HR PATCH TRANSDERM ONE
[2023-07-08] MEDS ORDERED: BUPIVACAINE (PF) 0.25% 30 ML VIAL SQ ONE ×2 (12:51→13:32)
[2023-07-08] MEDS ORDERED: PHENYLEPHRINE-0.9% NACL SYG 1,000 MCG/10 ML SYRINGE ONE (12:57)
[2023-07-08] MEDS ORDERED: PROPOFOL 10 MG/ML 20 ML VIAL IV ONE (12:57)
[2023-07-08] MEDS ORDERED: MIDAZOLAM 2 MG/2 ML VIAL ONE (12:57)
[2023-07-08] MEDS ORDERED: fentaNYL (PF) 50 MCG/ML 2 ML AMP ONE (12:57)
[2023-07-08] MEDS ORDERED: LIDOCAINE 1% INJ 10MG/ML (20 ML MDV) ONE (12:57)
[2023-07-08] MEDS ORDERED: KETOROLAC 15 MG/ML 1 ML VIAL ONE (12:57)
--- NOTE | 2023-07-08 13:48 | P.OP ---
Date of Procedure: 07/08/23 Preoperative Diagnosis: Internal derangement left knee Postoperative Diagnosis: 1. Grade 4 chondromalacia medial femoral condyle left knee 2. Tear medial and lateral meniscus left knee 3. Reactive synovitis medial, lateral and suprapatellar compartments left knee Procedure(s) Performed: 1. Arthroscopic microfracture medial femoral condyle left knee 2. Arthroscopic partial medial and lateral meniscectomy left knee 3. Arthroscopic partial synovectomy medial, lateral and suprapatellar compartments left knee Anesthesia: JEFFA, local Surgeon: Rafael Hutchinson Estimated Blood Loss (ml): 5 Pathology: none sent Condition: stable Disposition: PACU Indications for Procedure: 43-year-old patient seen with progressive left knee pain. After having treatment options discussed, he elected to proceed with arthroscopy. Operative Findings: see description of procedure Description of Procedure: Patient was taken to the operative suite. Patient underwent a general anesthetic by the department of anesthesia. Patient was given preoperative antibiotics. The left lower extremity was placed in a well-padded arthroscopic leg esteves. The left leg was prepped and draped in the normal sterile orthopedic fashion. A lateral parapatellar and suprapatellar incision was made. Trochars were inserted. Arthroscopy was initiated. Suprapatellar pouch revealed diffuse thick reactive synovitis. The patellofemoral joint appeared to articulate congruently. There was grade 1 chondromalacia of the patellofemoral joint without tears.. The scope was guided into the medial gutter. No loose bodies or plica were identified. The scope was then guided into the medial compartment. A medial parapatellar incision was made. Trocar inserted followed by probe. There was a small radial tear posterior horn medial meniscus. There was an area of grade 3/4 chondromalacia and femoral condyle with large osteochondral flap tear. There was thick reactive synovitis anteriorly. I performed a partial medial meniscectomy getting down to stable meniscal tissue. I performed a chondroplasty of the medial femoral condyle getting down to stable osteochondral tears I performed a partial synovectomy decompressing the reactive synovitis. I did note an area of exposed bone along the medial femoral condyle measuring almost 1 cm. I introduced a microfracture awl and I performed a microfracture to the area of exposed bone at inserting the bone with resultant bleeding at the microfracture site. The residual meniscus was probed and was found to be stable. There was good decompression of the synovitis. Scope and probe were then guided into the intercondylar notch. Cruciates were identified, probed and found to be stable. The scope and probe were then guided into lateral compartment. There was a radial tear posterior horn lateral meniscus. There were grade 2 chondromalacia changes of the tibial plateau. There was some thick reactive synovitis anteriorly. I performed a partial lateral meniscectomy getting down to stable meniscal tissue. I performed a partial synovectomy decompressing reactive synovitis. The residual meniscus was stable. There was good decompression of the synovitis. The scope was in guided back into the suprapatellar compartment. I introduced a motorized shaver into the suprapatellar compartment. I performed a partial synovectomy. The shaver was removed. There was good decompression of the synovitis. I took one more look around the entire knee, no residual debris. Instruments were now removed from the joint. The joint was infiltrated with .25% Marcaine. Steri-Strips were applied to the portal sites. Sterile dressings were applied. The patient was placed into a KATHARINA hose. No tourniquet was utilized. The patient was awakened, transferred to a bed and taken to recovery stable satisfactory condition.
[2023-07-08 14:15] VITALS: TEMP 97.1
[2023-07-08 14:39] VITALS: RESP 20
[2023-07-08 15:26] VITALS: BP 119/85; PULSE 74
== END 2023-07-08 15:45 | disposition home or self-care (01) ==
LOC: OR 10:41
PROVIDERS: ATTEND Orthopaedic Surgery
DX: S83.282A Other tear of lateral meniscus, current injury, left knee, initial encounter (principal); S83.242A Other tear of medial meniscus, current injury, left knee, initial encounter; M65.162 Other infective (teno)synovitis, left knee; M22.42 Chondromalacia patellae, left knee; I25.2 Old myocardial infarction; J45.909 Unspecified asthma, uncomplicated; F17.200 Nicotine dependence, unspecified, uncomplicated; M19.90 Unspecified osteoarthritis, unspecified site; Z79.899 Other long term (current) drug therapy; Z88.0 Allergy status to penicillin; X58.XXXA Exposure to other specified factors, initial encounter
CPT/HCPCS: 29879; 29880; J2250; J1100; J2405; J2001; J3010; J1885; J2704; J1170; J2371; J0665

== ENCOUNTER 2023-09-08 09:18 | Day surgery (SDC) | payer OTHER ==
[2023-09-02 15:16] VITALS: BMI 27.3
--- NOTE | 2023-09-07 20:28 | HP ---
HISTORY AND PHYSICAL DATE OF SURGERY: 09/08/2023. HISTORY OF PRESENT ILLNESS: Dheeraj Armstrong is a 43-year-old gentleman, who was seen with progressive right knee pain. We discussed treatment options. He elected to proceed with right knee arthroscopy. Consent was obtained. PAST MEDICAL HISTORY: Noncontributory. PAST SURGICAL HISTORY: Appendectomy, herniorrhaphy. DAILY MEDICATIONS: 1. [place]. 2. Tylenol. ALLERGIES: Penicillin. SOCIAL HISTORY: Smokes half pack of cigarettes daily. PHYSICAL EVALUATION OF THE RIGHT KNEE: Range of motion is 0 to 130 degrees. Mild effusion. Tenderness along the medial joint line. Positive medial Dawn's. Ligaments stable. Hip rotation without pain. Distal neurovascular exam is intact. IMAGING STUDIES: Right knee radiographs revealed mild osteoarthritis. MRI of right knee revealed a popliteal cyst. IMPRESSION: Internal derangement of right knee with medial meniscal tear. PLAN: Right knee arthroscopy with partial medial meniscectomy and debridement. MMODL / IJN: [id number] /
[~2023-09-08 09:18] MED LIST changes: -DEXAMETHASONE SOD PHOSPHATE 4 MG/ML 1 ML VIAL IV ONE; -HYDROmorphone 0.5 MG/0.5 ML SYRINGE IVP PRN; -LIDOCAINE 1% (10MG/ML) FOR IV START INTRADERMA PRN; -ONDANSETRON 4 MG/2 ML VIAL IVP ONE; -SCOPOLAMINE 1 MG/72 HR PATCH TRANSDERM ONE
[2023-09-08] MEDS: LACTATED RINGERS 1,000 ML IV ONE (09:30)
[2023-09-08] MEDS: DEXAMETHASONE SOD PHOSPHATE 4 MG/ML 1 ML VIAL IV ONE (10:00)
[2023-09-08] MEDS: ONDANSETRON 4 MG/2 ML VIAL IVP ONE (10:00)
[2023-09-08] MEDS ORDERED: ONDANSETRON 4 MG/2 ML VIAL ONE (10:04)
[2023-09-08 10:21] VITALS: TEMP 97.8
[2023-09-08] MEDS: BUPIVACAINE (PF) 0.25% 30 ML VIAL SQ ONE ×2 (10:27→11:03)
[2023-09-08] MEDS ORDERED: fentaNYL (PF) 50 MCG/ML 2 ML AMP ONE (10:31)
[2023-09-08] MEDS ORDERED: MIDAZOLAM 2 MG/2 ML VIAL ONE (10:31)
[2023-09-08] MEDS ORDERED: KETOROLAC 15 MG/ML 1 ML VIAL ONE (10:31)
[2023-09-08] MEDS ORDERED: PROPOFOL 10 MG/ML 20 ML VIAL IV ONE (10:31)
[2023-09-08] MEDS ORDERED: LIDOCAINE 1% INJ 10MG/ML (20 ML MDV) ONE (10:31)
--- NOTE | 2023-09-08 11:15 | P.OP ---
Date of Procedure: 09/08/23 Preoperative Diagnosis: Internal derangement right knee Postoperative Diagnosis: 1. Tear medial and lateral meniscus right knee 2. Reactive synovitis medial, lateral and suprapatellar compartments right knee Procedure(s) Performed: 1. Arthroscopic partial medial and lateral meniscectomy right knee 2. Arthroscopic partial synovectomy medial, lateral and suprapatellar compartments right knee Anesthesia: GETA, local Surgeon: Rafael Hutchinson Estimated Blood Loss (ml): 5 Pathology: none sent Condition: stable Disposition: PACU Indications for Procedure: 43-year-old patient who was seen with progressive right knee pain. After having treatment options discussed, he elected to proceed with arthroscopy. Operative Findings: See description of procedure Description of Procedure: Patient was taken to the operative suite. Patient underwent a general anesthetic by the department of anesthesia. Patient was given preoperative antibiotics. The right lower extremity was placed in a well-padded arthroscopic leg esteves. The right leg was prepped and draped in the normal sterile orthopedic fashion. A lateral parapatellar and suprapatellar incision was made. Trochars were inserted. Arthroscopy was initiated. Suprapatellar pouch revealed diffuse thick reactive synovitis. The patellofemoral joint appeared to articulate congruently. There was grade I chondromalacia of the patellofemoral joint without tearing. The scope was guided into the medial gutter. No loose bodies or plica were identified. The scope was then guided into the medial compartment. A medial parapatellar incision was made. Trocar inserted followed by probe. There was a radial tear involving the posterior horn of the medial meniscus. There were grade I chondromalacia changes of the medial tibial plateau without tears. There was thick reactive synovitis anteriorly. I performed a partial medial meniscectomy getting down to stable meniscal tissue. I performed a partial synovectomy decompressing the thick reactive synovitis anteriorly. The residual meniscus was probed and was found to be stable. There was good decompression of the synovitis. Scope and probe were then guided into the intercondylar notch. Cruciates were identified, probed and found to be stable. The scope and probe were then guided into lateral compartment. There was a radial tear involving the body lateral meniscus. There were grade I/II chondromalacia changes of the lateral tibial plateau with no significant osteochondral tears. There was thick reactive synovitis anteriorly. I performed a partial medial meniscectomy getting down to stable meniscal tissue. I performed a partial synovectomy decompressing that thick reactive synovitis anteriorly. The residual meniscus was stable. There was good decompression of the synovitis. The scope was in guided back into the suprapatellar compartment. I introduced a motorized shaver into the suprapatellar compartment. I performed a partial synovectomy. The shaver was now removed. There was good decompression of the synovitis. I took 1 more look around the entire knee, no residual debris. Instruments were now removed from the joint. The joint was infiltrated with .25% Marcaine. Steri-Strips were applied to the portal sites. Sterile dressings were applied. The patient was placed into a KATHARINA hose. No tourniquet was utilized. The patient was awakened, transferred to a bed and taken to recovery stable satisfactory condition.
[2023-09-08] MEDS: HYDROmorphone 0.5 MG/0.5 ML SYRINGE IVP PRN (11:29)
[2023-09-08 12:49] VITALS: BP 120/83; PULSE 66; RESP 14
== END 2023-09-08 12:50 | disposition home or self-care (01) ==
LOC: OR 09:18
PROVIDERS: ATTEND Orthopaedic Surgery
DX: S83.281A Other tear of lateral meniscus, current injury, right knee, initial encounter (principal); S83.241A Other tear of medial meniscus, current injury, right knee, initial encounter; M65 Synovitis and tenosynovitis; J45.909 Unspecified asthma, uncomplicated; F17.210 Nicotine dependence, cigarettes, uncomplicated; Z79.899 Other long term (current) drug therapy; Z88.0 Allergy status to penicillin; Z79.51 Long term (current) use of inhaled steroids; X58.XXXA Exposure to other specified factors, initial encounter
CPT/HCPCS: 29880; J2250; J1100; J0690; J2405; J2001; J3010; J1885; J2704; J1170; J0665